=== PATIENT | male | born 1985 | race Caucasian/White ===

== ENCOUNTER → 2021-12-10 | Day surgery (SDC) | payer OTHER ==
[2021-12-06 15:51] VITALS: BMI 38.2
[2021-12-10 07:40] VITALS: BP 123/81; PULSE 77; TEMP 97.1
== END | disposition home or self-care (01) ==
LOC: FASUSAT 07:14
PROVIDERS: ATTEND Plastic Surgery
PROC: 0H0V0ZZ Alteration of Bilateral Breast, Open Approach (ICD-10-PCS; principal; 2021-12-10)
DX: Z53.09 Procedure and treatment not carried out because of other contraindication (principal); N62 Hypertrophy of breast